=== PATIENT | male | born 1960 | race Caucasian/White ===

== ENCOUNTER 2023-05-12 03:38 | Emergency (ER) | payer OTHER ==
[2023-05-12 03:50] LABS: BASOPHILS ABSOLUTE AUTO 0.03 K/uL (0.00-0.20); BASOPHILS PERCENT AUTO 0.2 % (0.0-1.0); EOSINOPHILS ABSOLUTE AUTO 0.03 K/uL (0.00-0.45); EOSINOPHILS PERCENT AUTO 0.2 % (0.0-6.0); HEMATOCRIT 56.8 % (42.0-52.0); HEMOGLOBIN 19.1 g/dL (14.0-18.0); IMMATURE GRAN ABSOLUTE AUTO 0.03 K/uL (0.00-0.05); IMMATURE GRAN PERCENT AUTO 0.2 % (0.0-0.4); LYMPHOCYTES ABSOLUTE AUTO 1.16 K/uL (1.00-4.80); LYMPHOCYTES PERCENT AUTO 8.7 % (24.0-44.0); MEAN CORPUSCULAR HEMOGLOBIN 29.3 pg (28.0-32.0); MEAN CORPUSCULAR HGB CONC 33.6 g/dL (32.0-36.0); MEAN CORPUSCULAR VOLUME 87.3 fL (83.0-99.0); MONOCYTES ABSOLUTE AUTO 0.43 K/uL (0.00-0.80); MONOCYTES PERCENT AUTO 3.2 % (0.0-8.0); NEUTROPHILS ABSOLUTE AUTO 11.71 K/uL (1.80-7.70); NEUTROPHILS PERCENT AUTO 87.5 % (41.0-71.0); PLATELET COUNT,PLT 260 K/uL (150-400); RED BLOOD CELL COUNT 6.51 M/uL (4.52-5.90); WHITE BLOOD CELL COUNT,WBC 13.39 K/uL (3.9-11.3)
[2023-05-12 04:31] LABS: ALBUMIN 3.8 g/dL (3.4-5.0); BILIRUBIN TOTAL 1.9 mg/dL (0.2-1.0); CALCIUM 9.6 mg/dL (8.5-10.1); CREATININE 1.3 mg/dL (0.8-1.3); EST CRCL DRUG DOSING (CG) 56.5 mL/min; POTASSIUM,K 4.7 mmol/L (3.5-5.1); PROTEIN TOTAL,TP 7.6 g/dL (6.4-8.2)
[2023-05-12] MEDS: Morphine 4 MG/ML Syringe IVPUSH ONE ×2 (04:38→08:24)
[2023-05-12] MEDS: Sodium Chloride 0.9% 2.5 ML Syringe FLUSH PRN (04:38)
[2023-05-12] MEDS: Sodium Chloride 0.9% 10 ML Syringe FLUSH PRN (04:39)
[2023-05-12 04:40] LABS: CORONAVIRUS COVID-19 NAA NEGATIVE (NEGATIVE); INFLUENZA A NAA NEGATIVE (NEGATIVE); INFLUENZA B NAA NEGATIVE (NEGATIVE)
[2023-05-12] MEDS: Heparin Sodium 5,000 Units/ML Vial ONE (05:13)
[2023-05-12] MEDS: Heparin Sodium/0.45% NaCl 500 ML ONE (05:13)
[2023-05-12] MEDS: Heparin Sodium/0.45% NaCl 500 ML IV SCH (05:15)
[2023-05-12] MEDS: Heparin Sodium 5,000 Units/ML Vial IVPUSH ONE (05:16)
[2023-05-12] MEDS: Ondansetron 4 MG/2 ML SDV IVPUSH ONE (05:20)
[2023-05-12] MEDS: Ondansetron 4 MG/2 ML SDV ONE (05:23)
[2023-05-12] MEDS: HYDROmorphone 1 MG/ML Syringe IVPUSH ONE (05:25)
[2023-05-12 05:33] LABS: INR 1.23 (0.86-1.11); PTT,PARTIAL THROMBOPLSTIN TIME 30.7 SEC (23.9-30.7)
[2023-05-12] MEDS: Albuterol/Ipratropium 3.0-0.5 MG/3 ML Neb Soln ONE ×2 (05:51→08:08)
[2023-05-12] MEDS: Albuterol/Ipratropium 3.0-0.5 MG/3 ML Neb Soln NEB ONE ×3 (05:52→08:08)
[2023-05-12] MEDS: methylPREDNISolone Sodium Succinate 125 MG/2 ML SDV IVPUSH ONE ×2 (05:54→05:55)
[2023-05-12] MEDS: Nitroglycerin/D5W 25 MG/250 ML BOTTLE IV SCH (06:01)
[2023-05-12] MEDS: Nitroglycerin/D5W 25 MG/250 ML BOTTLE ONE (06:11)
[2023-05-12] MEDS: Furosemide 40 MG/4 ML VIAL IVPUSH ONE ×2 (07:04→09:57)
[2023-05-12] MEDS: Albuterol 0.083% 2.5 MG/3 ML Neb Soln NEB ONE (08:10)
[2023-05-12] MEDS: Morphine 4 MG/ML Syringe ONE (09:37)
[2023-05-12] MEDS: cefTRIAXone 1 GM in Sodium Chloride 0.9% 50 ML IV ONE (09:48)
[2023-05-12 10:07] LABS: BASOPHILS ABSOLUTE AUTO 0.03 K/uL (0.00-0.20); BASOPHILS PERCENT AUTO 0.2 % (0.0-1.0); EOSINOPHILS ABSOLUTE AUTO 0.01 K/uL (0.00-0.45); EOSINOPHILS PERCENT AUTO 0.1 % (0.0-6.0); HEMATOCRIT 68.5 % (42.0-52.0); HEMOGLOBIN 21.9 g/dL (14.0-18.0); IMMATURE GRAN ABSOLUTE AUTO 0.04 K/uL (0.00-0.05); IMMATURE GRAN PERCENT AUTO 0.3 % (0.0-0.4); LYMPHOCYTES ABSOLUTE AUTO 1.36 K/uL (1.00-4.80); LYMPHOCYTES PERCENT AUTO 10.4 % (24.0-44.0); MEAN CORPUSCULAR HEMOGLOBIN 29.3 pg (28.0-32.0); MEAN CORPUSCULAR VOLUME 91.6 fL (83.0-99.0); MEAN PLATELET VOLUME 10.9 fL (9.4-12.4); MONOCYTES ABSOLUTE AUTO 0.24 K/uL (0.00-0.80); MONOCYTES PERCENT AUTO 1.8 % (0.0-8.0); NEUTROPHILS ABSOLUTE AUTO 11.46 K/uL (1.80-7.70); NEUTROPHILS PERCENT AUTO 87.2 % (41.0-71.0); PLATELET COUNT,PLT 257 K/uL (150-400); RED BLOOD CELL COUNT 7.48 M/uL (4.52-5.90); WHITE BLOOD CELL COUNT,WBC 13.14 K/uL (3.9-11.3)
[2023-05-12 10:09] LABS: BASE EXCESS ARTERIAL -9.7 (-2.0-3.0); BICARBONATE,ARTERIAL 23 mEq/L (22-26); PCO2 ARTERIAL 78 mmHG (35-45); PO2 ARTERIAL 75 mmHG (80-105)
[2023-05-12 10:28] LABS: LACTIC ACID 4.7 mmol/L (0.4-2.0)
[2023-05-12 10:52] LABS: A/G RATIO 0.9 (0.9-1.6); ALBUMIN 3.8 g/dL (3.4-5.0); BILIRUBIN TOTAL 1.2 mg/dL (0.2-1.0); CALCIUM 9.5 mg/dL (8.5-10.1); CARBON DIOXIDE,CO2 17.4 mmol/L (21.0-32.0); EST CRCL DRUG DOSING (CG) 36.72 mL/min; POTASSIUM,K 4.4 mmol/L (3.5-5.1); PROTEIN TOTAL,TP 7.9 g/dL (6.4-8.2)
== END 2023-05-12 10:40 ==
LOC: MW.ED 03:38
DX: I21.4 Non-ST elevation (NSTEMI) myocardial infarction (principal); I50.9 Heart failure, unspecified; Z79.899 Other long term (current) drug therapy
CPT/HCPCS: 0240U; 36415; 36600; 71045; 80053; 82803; 83605; 83880; 84484; 85025; 85610; 85730; 87040; 93005; 96365; 96366; 96368; 96375; 96376; 99285; J0696; J1170; J1644; J1940; J2270; J2305; J2405; J2930; J3490; 93010; 99291; J7620-GY